=== PATIENT | male | born 1955 | race Caucasian/White ===

== ENCOUNTER 2016-10-04 20:57 | Observation (INO) | payer OTHER ==
[2016-10-04] MEDS ORDERED: HYDROmorphONE/DILAUDID 1 MG/ML SYR IVP ONE ×2 (21:28→23:11)
[2016-10-04] MEDS ORDERED: ONDANSETRON 4 MG/2 ML VIAL IVP ONE (21:29)
[2016-10-04] MEDS ORDERED: NS 1,000 ML IV ONE (21:29)
[2016-10-04 21:33] LABS: ADD DIFF? NO; ADD MORPH? NO; ADD SCAN? NO; ATYPICAL LYMPHOCYTE FLAG 10 (0-99); FRAGMENT RBC FLAG 0 (0-99); HEMATOCRIT 37.5 % (40.0-51.0); HEMOGLOBIN 12.5 g/dL (13.7-17.5); LEFT SHIFT FLG 0 (0-99); LIPEMIA HEMOLYSIS FLAG 80 (0-99); MEAN CELL HEMOGLOBIN 29.3 pg (27.9-34.1); MEAN CELL HEMOGLOBIN CONCENTR. 33.3 g/dL (32.4-36.7); MEAN CELL VOLUME 87.8 fL (81.5-99.8); MEAN PLATELET VOLUME 10.4 fL (8.7-11.7); PLATELET CLUMPS FLAG 0 (0-99); PLATELET COUNT 219 10^3/uL (150-400); RED BLOOD CELL COUNT 4.27 10^6/uL (4.40-6.38)
[2016-10-04 21:52] LABS: ANION GAP 16 mEq/L (8-16); CARBON DIOXIDE 22 mEq/l (22-31); CHLORIDE 106 mEq/L (97-110); CREATININE 0.8 mg/dL (0.7-1.3); GLOMERULAR FILTRATION RATE > 60; GLUCOSE 95 mg/dL (70-100); POTASSIUM 3.5 mEq/L (3.5-5.2); SODIUM 144 mEq/L (134-144)
--- NOTE | 2016-10-04 22:43 | EDPHY ---
H & P Stated Complaint: illestomy reversal 1 month ago; severe RUQ and stomach pain x1.5 hours Source: Patient Exam Limitations: No limitations - Medical/Surgical History Hx Asthma: No Hx Chronic Respiratory Disease: No Hx Diabetes: No Hx Cardiac Disease: No Hx Renal Disease: No Hx Cirrhosis: No Hx Alcoholism: No Hx HIV/AIDS: No Hx Splenectomy or Spleen Trauma: No Other PMH: spontaneous illestomy with reversal with bowel resection, appendectomy - Social History Smoking Status: Never smoked <Mehul Prieto - Last Filed: 10/04/16 23:12> <Kenia Joseph - Last Filed: 10/05/16 07:27> Time Seen by Provider: 10/04/16 22:09 HPI/ROS: CHIEF COMPLAINT: Abdominal pain HISTORY OF PRESENT ILLNESS: The patient presents to the ED with complaints of moderate abdominal pain which began approximately 1 hour prior to arrival after eating a small meal. The patient has a history of a bowel obstruction requiring surgery and a ileostomy. This was taken down approximately 1 month ago. The patient has been recovering slowly since his surgery. He had been advancing his diet. He saw his general surgeon yesterday who cleared the patient travel. The patient is visiting [place] today. While having a small amount of appetite or this evening, the patient developed fairly significant epigastric pain and right upper quadrant pain. The patient denies nausea or vomiting. The patient has not passed gas since the event. The patient denies fever. The patient has no medical comorbidities such as hypertension diabetes or immunosuppression. Patient does have a remote history of spontaneous pneumothorax requiring pleurodesis. REVIEW OF SYSTEMS: A comprehensive 10 point review of systems is otherwise negative aside from elements mentioned in the history of present illness. (Mehul Prieto) - Physical Exam Exam: General Appearance: Alert, no distress Eyes: Pupils equal and round no pallor or injection ENT, Mouth: Mucous membranes moist Respiratory: There are no retractions, lungs are clear to auscultation Cardiovascular: Regular rate and rhythm Gastrointestinal: Tenderness to palpation in the left upper quadrant, epigastrium and right upper quadrant, decreased bowel sounds, no peritoneal signs Neurological: A&O, normal motor function, normal sensory exam, normal cranial nerves Skin: Warm and dry, no rashes Musculoskeletal: Neck is supple nontender Extremities: symmetrical, full range of motion (Mehul Prieto) Constitutional: Initial Vital Signs Heart Rate 80 10/04/16 21:13 Respiratory Rate 20 10/04/16 21:13 Blood Pressure 151/101 H 10/04/16 21:13 O2 Sat (%) 99 10/04/16 21:13 O2 Delivery Mode Room Air Allergies/Adverse Reactions: morphine Allergy (Verified 10/04/16 21:13) Home Medications: Medication Instructions Recorded IRON 10/04/16 Multivitamin 10/04/16 Protonix 10/04/16 Medical Decision Making <Mehul Prieto - Last Filed: 10/04/16 23:12> - Diagnostics Imaging: Discussed imaging studies w/ call center recruiter Radiologist, I viewed and interpreted images myself <Kenia Joseph - Last Filed: 10/05/16 07:27> - Diagnostics Imaging Results: Imaging Impressions Abdomen X-Ray 10/04/16 22:41 Impression: Constipation with mild air distention of the transverse colon without evidence of obstruction. Abdomen CT 10/04/16 23:11 Impression: 1. Small bowel obstruction, possibly closed-loop, involving jejunum in the left abdomen, with prominent mesenteric edema and a small volume of ascites. 2. Constipation with relative decompression of colon in the left abdomen without definite evidence of obstruction. 3. Punctate right nephrolithiasis. 4. Additional findings as above. Findings discussed with Kenia Joseph 10/04/2016 at 23:50. ED Course/Re-evaluation: The patient presents the ED with abdominal pain decreased bowel sounds in the setting of recent bowel surgery. The patient's vital signs are stable. He has no significant leukocytosis or metabolic abnormality. KUB of the abdomen demonstrates no obvious obstruction. There is suggestion of constipation. The patient had an IV established. He received 1 mg of Dilaudid. He received a L of normal saline. The patient was reexamined by myself at 11:12 p.m.. He is having recurrent abdominal pain after some period of improvement following IV narcotics. Given his history of abdominal surgery, I have ordered a CT scan of the abdomen pelvis. Plan will be to assess for evidence of a perforation or obstruction. If this is negative I will recommend that we treat his constipation and potentially give him a GI cocktail. The patient will be turned over to Dr. Kenia Joseph at shift change pending his CT scan. (Mehul Prieto) At about 11:00 p.m. I assumed care of this patient. His CT scan results have returned demonstrating a small-bowel obstruction with a closed loop. I have reassessed the patient and he is continuing to have abdominal pain and tenderness. He has not had any vomiting. I have consulted with the on-call general surgeon Dr. Tolbert and we have discussed the case. We plan to admit the patient. I have discussed the plan with the patient. (Kenia Joseph) Differential Diagnosis: Differential diagnosis considered includes constipation, obstruction, perforation, gastritis, peptic ulcer disease (Mehul Prieto) - Data Points Laboratory Results: Laboratory Results 10/04/16 21:25 10/04/16 21:25 10/04/16 10/04/16 21:25 21:25 WBC 5.63 10^3/uL 10^3/uL (3.80-9.50) RBC 4.27 10^6/uL L 10^6/uL (4.40-6.38) Hgb 12.5 g/dL L g/dL (13.7-17.5) Hct 37.5 % L % (40.0-51.0) MCV 87.8 fL fL (81.5-99.8) MCH 29.3 pg pg (27.9-34.1) MCHC 33.3 g/dL g/dL (32.4-36.7) RDW 14.0 % % (11.5-15.2) Plt Count 219 10^3/uL 10^3/uL (150-400) MPV 10.4 fL fL (8.7-11.7) Neut % (Auto) 68.4 % % (39.3-74.2) Lymph % (Auto) 21.8 % % (15.0-45.0) [place] % (Auto) 7.8 % % (4.5-13.0) Eos % (Auto) 1.6 % % (0.6-7.6) Baso % (Auto) 0.4 % % (0.3-1.7) Nucleat RBC Rel Count 0.0 % % (0.0-0.2) Absolute Neuts (auto) 3.85 10^3/uL 10^3/uL (1.70-6.50) Absolute Lymphs (auto) 1.23 10^3/uL 10^3/uL (1.00-3.00) Absolute Monos (auto) 0.44 10^3/uL 10^3/uL (0.30-0.80) Absolute Eos (auto) 0.09 10^3/uL 10^3/uL (0.03-0.40) Absolute Basos (auto) 0.02 10^3/uL 10^3/uL (0.02-0.10) Absolute Nucleated RBC 0.00 10^3/uL 10^3/uL (0-0.01) Immature Gran % 0.0 % % (0.0-1.1) Immature Gran # 0.00 10^3/uL 10^3/uL (0.00-0.10) Sodium 144 mEq/L mEq/L (134-144) Potassium 3.5 mEq/L mEq/L (3.5-5.2) Chloride 106 mEq/L mEq/L (97-110) Carbon Dioxide 22 mEq/l mEq/l (22-31) Anion Gap 16 mEq/L mEq/L (8-16) BUN 13 mg/dL mg/dL (7-23) Creatinine 0.8 mg/dL mg/dL (0.7-1.3) Estimated GFR > 60 Glucose 95 mg/dL mg/dL (70-100) Calcium 10.0 mg/dL mg/dL (8.5-10.4) Medications Given: Discontinued Medications Bisacodyl (Dulcolax Rectal) 10 mg MT ONCE ONE Stop: 10/05/16 00:52 Last Admin: 10/05/16 01:37 Dose: 10 mg Hydromorphone HCl (Dilaudid) 1 mg IVP EDNOW ONE Stop: 10/04/16 21:29 Last Admin: 10/04/16 21:34 Dose: 1 mg Hydromorphone HCl (Dilaudid) 1 mg IVP EDNOW ONE Stop: 10/04/16 23:12 Last Admin: 10/04/16 23:14 Dose: 1 mg Sodium Chloride (Ns) 1,000 mls @ 0 mls/hr IV ONCE ONE PRN Reason: Wide Open Stop: 10/04/16 21:30 Last Admin: 10/04/16 21:35 Dose: 1,000 mls Ondansetron HCl (Zofran) 4 mg IVP EDNOW ONE Stop: 10/04/16 21:30 Last Admin: 10/04/16 21:35 Dose: 4 mg Departure <Mehul Prieto - Last Filed: 10/04/16 23:12> <Kenia Joseph - Last Filed: 10/05/16 07:27> - Departure Disposition: [facility] Acute Clinical Impression: Small bowel obstruction Condition: Fair
[2016-10-04] MEDS ORDERED: IOPAMIDOL (ISOVUE-300) 100 ML BTL ONE (23:15)
[2016-10-05] MEDS ORDERED: TEMAZEPAM 15 MG CAP PO PRN (00:46)
[2016-10-05] MEDS ORDERED: ONDANSETRON 4 MG/2 ML VIAL IVP PRN (00:46)
[2016-10-05] MEDS ORDERED: BISACODYL 10 MG SUPP PR PRN (00:51)
[2016-10-05] MEDS ORDERED: BISACODYL 10 MG SUPP PR ONE (00:51)
--- NOTE | 2016-10-05 01:01 | PDGENHP ---
History and Physical - Chief Complaint abd pain - History of Present Illness 60 y/o male one month s/p ileostomy takedown travelled to [place] yesterday on business from [place]. After dinner this evening he developed abdominal pain and he came to the ED. Surgical consultation was requested by Dr. Joseph for possible bowel obstruction. He denies nausea or emesis. He has received 2 mg of Dilaudid in the ED and appears comfortable. He reports daily bowel movements for the past couple of weeks and none today. 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 He remained hospitalized there for 2 weeks and after returning [place] the [place] he was rehospitalized for what sounds like dehydration/renal failure due to a persistent high ileostomy output. At age 15 he was hospitalized for a ruptured appendix with a prolonged recovery. History Information - Allergies/Home Medication List Allergies/Adverse Reactions: morphine Allergy (Verified 10/04/16 21:13) Home Medications: IRON 10/04/16 [Last Taken Unknown] Multivitamin 10/04/16 [Last Taken Unknown] Protonix 10/04/16 [Last Taken Unknown] I have personally reviewed and updated: family history, medical history, social history, surgical history - Past Medical History Additional medical history: gastric errosions following recent illness confirmed by EGD - Surgical History Reports: appendectomy Additional surgical history: bowel resection with ileostomy July 2016 for volvulus/takedown of ileostomy August 2016 - Social History Smoking Status: Never smoked Alcohol Use: Sober Drug Use: None Additional social history: here with co worker/lives in [place]- is coming tomorrow Review of Systems Constitutional: Reports: recent illness Gastrointestinal: Reports: abdominal pain, abdominal distention, constipation Genitourinary: Reports: no symptoms Physical Exam Temp Pulse Resp BP Pulse Ox 36.8 C 78 20 154/104 H 98 10/05/16 00:52 10/05/16 00:52 10/05/16 00:52 10/05/16 00:52 10/05/16 00:52 Constitutional: no apparent distress Eyes: anicteric sclera Ears, Nose, Mouth, Throat: moist mucous membranes Cardiovascular: regular rate and rhythym Respiratory: no respiratory distress, clear to auscultation Gastrointestinal: normoactive bowel sounds, tenderness, distension, other (well healing midline and RLQ incisions without signs of infection/no hernia/ tympanitic and tender throughout without guarding or rebound) Genitourinary: no bladder fullness Skin: warm, normal color Neurologic: AAOx3 Psychiatric: interacting appropriately, not anxious Lymph, Heme, Immunologic: no cervical LAD, no supraclavicular LAD Lab Data & Imaging Review 10/04/16 21:25 10/04/16 21:25 WBC 5.63 10^3/uL (3.80-9.50) 10/04/16 21:25 RBC 4.27 10^6/uL (4.40-6.38) L 10/04/16 21: Hgb 12.5 g/dL (13.7-17.5) L 10/04/16 21: Hct 37.5 % (40.0-51.0) L 10/04/16 21:25 MCV 87.8 fL (81.5-99.8) 10/04/16 21: MCH 29.3 pg (27.9-34.1) 10/04/16 21: MCHC 33.3 g/dL (32.4-36.7) 10/04/16 21: RDW 14.0 % (11.5-15.2) 10/04/16 21: Plt Count 219 10^3/uL (150-400) 10/04/16 21:25 MPV 10.4 fL (8.7-11.7) 10/04/16 21:25 Neut % (Auto) 68.4 % (39.3-74.2) 10/04/16 21:25 Lymph % (Auto) 21.8 % (15.0-45.0) 10/04/16 21:25 [place] % (Auto) 7.8 % (4.5-13.0) 10/04/16 21:25 Eos % (Auto) 1.6 % (0.6-7.6) 10/04/16 21:25 Baso % (Auto) 0.4 % (0.3-1.7) 10/04/16 21:25 Nucleat RBC Rel Count 0.0 % (0.0-0.2) 10/04/16 21: Absolute Neuts (auto) 3.85 10^3/uL (1.70-6.50) 10/04/16 21:25 Absolute Lymphs (auto) 1.23 10^3/uL (1.00-3.00) 10/04/16 21:25 Absolute Monos (auto) 0.44 10^3/uL (0.30-0.80) 10/04/16 21:25 Absolute Eos (auto) 0.09 10^3/uL (0.03-0.40) 10/04/16 21:25 Absolute Basos (auto) 0.02 10^3/uL (0.02-0.10) 10/04/16 21:25 Absolute Nucleated RBC 0.00 10^3/uL (0-0.01) 10/04/16 21:25 Immature Gran % 0.0 % (0.0-1.1) 10/04/16 21:25 Immature Gran # 0.00 10^3/uL (0.00-0.10) 10/04/16 21:25 Sodium 144 mEq/L (134-144) 10/04/16 21:25 Potassium 3.5 mEq/L (3.5-5.2) 10/04/16 21:25 Chloride 106 mEq/L (97-110) 10/04/16 21:25 Carbon Dioxide 22 mEq/l (22-31) 10/04/16 21:25 Anion Gap 16 mEq/L (8-16) 10/04/16 21:25 BUN 13 mg/dL (7-23) 10/04/16 21:25 Creatinine 0.8 mg/dL (0.7-1.3) 10/04/16 21:25 Estimated GFR > 60 10/04/16 21:25 Glucose 95 mg/dL (70-100) 10/04/16 21:25 Calcium 10.0 mg/dL (8.5-10.4) 10/04/16 21:25 Visualized and Interpreted Chest x-ray results: Yes Visualized and Interpreted imaging results: Yes Interpretation: plain abd films and CT reviewed. mild dilatation small bowel LLQ. Significant amount of stool and gas in the colon. distended stomach with solid/liquid. Assessment & Plan Assessment: abdominal pain with two recent laparotomies for a complicated volvulus requiring an ileostomy/subsequent takedown. I suspect his current symptoms are more likely related to obstipation related to ongoing Iron therapy and low residue diet. Certainly, mechanical obstruction of the small bowel is possible and I recommended he be admitted for observation and small bowel follow through in the AM. Will administer IV fluids and hold off on an NGT as he has not been vomiting.
[2016-10-05] MEDS: LR 1,000 ML IV SCH ×2 (01:37→08:31)
[2016-10-05] MEDS: PANTOPRAZOLE SODIUM 40 MG in NS 100 ML IV SCH ×3 (01:52→20:12)
[2016-10-05] MEDS: HYDROmorphONE/DILAUDID 1 MG/ML SYR IVP PRN ×3 (01:58→08:32)
[2016-10-05 05:25] LABS: % IMMATURE GRANULYOCYTES 0.2 % (0.0-1.1); ABSOLUTE IMMATURE GRANULOCYTES 0.01 10^3/uL (0.00-0.10); ADD DIFF? NO; ADD MORPH? NO; ADD SCAN? NO; ATYPICAL LYMPHOCYTE FLAG 0 (0-99); FRAGMENT RBC FLAG 0 (0-99); HEMOGLOBIN 11.3 g/dL (13.7-17.5); LEFT SHIFT FLG 0 (0-99); LIPEMIA HEMOLYSIS FLAG 80 (0-99); MEAN CELL HEMOGLOBIN 29.3 pg (27.9-34.1); MEAN CELL HEMOGLOBIN CONCENTR. 33.2 g/dL (32.4-36.7); MEAN CELL VOLUME 88.1 fL (81.5-99.8); MEAN PLATELET VOLUME 10.4 fL (8.7-11.7); PLATELET CLUMPS FLAG 0 (0-99); PLATELET COUNT 176 10^3/uL (150-400); RED BLOOD CELL COUNT 3.86 10^6/uL (4.40-6.38)
[2016-10-05 05:50] LABS: ANION GAP 11 mEq/L (8-16); CALCIUM 9.2 mg/dL (8.5-10.4); CARBON DIOXIDE 24 mEq/l (22-31); CHLORIDE 109 mEq/L (97-110); CREATININE 0.8 mg/dL (0.7-1.3); GLOMERULAR FILTRATION RATE > 60; GLUCOSE 99 mg/dL (70-100); POTASSIUM 3.9 mEq/L (3.5-5.2); SODIUM 144 mEq/L (134-144)
--- NOTE | 2016-10-05 07:41 | SOAPPROG ---
Downtime Inpatient MD Late Entry SOAP Note: Justino is still having pain requiring Diluadid. No emesis He passed a couple of small hard stools after an enema. He remains afebrile/VSS Abd: soft, distended, incisions unchanged, mild tenderness without guarding KUB: large bowel gas/stool. Imp: severe obstipation/one month s/p ileostomy takedown Rec: SBFT with gastrograffin to rule out SBO S MD Didi, FACS
--- NOTE | 2016-10-05 17:21 | SOAPPROG ---
Downtime Inpatient MD Late Entry SOAP Note: delayed films show gastrograffin to have passed into large bowel will attempt trial of diet S MD Didi, FACS
--- NOTE | 2016-10-06 07:52 | SOAPPROG ---
SOHERMILO Progress Note Assessment/Plan: Assessment:obstipation/no SBO on SBFT Plan: advance diet/home later today if tolerated 10/06/16 07:50 Subjective: feels better/some hard stool passing Objective: Vital Signs Temp Pulse Resp BP Pulse Ox 36.9 C 61 16 120/79 94 10/06/16 04:00 10/06/16 04:00 10/06/16 04:00 10/06/16 04:00 10/06/16 04:00 Laboratory Results 10/05/16 04:55 10/05/16 04:55 10/05/16 10/06/16 10/07/16 05:59 05:59 05:59 Intake Total 1000 900 Balance 1000 900 - Pending Discharge Pending Discharge Within 24 Hours: Yes Pending Discharge Date: 10/07/16 Pending Discharge Time: 11:00 Physical Exam - Physical Exam General Appearance: alert, no apparent distress Abdomen: normal bowel sounds, non-tender, soft Neuro/Psych: alert, oriented x 3 ICD10 Worksheet Patient Problems: Problems Problem Status Onset Small bowel obstruction Acute
[2016-10-06] MEDS: LACTULOSE 20 GM/30 ML UDCUP PO SCH ×3 (08:43→22:00)
[2016-10-06] MEDS: SENNOSIDES/DOCUSATE SODIUM TAB PO SCH ×2 (08:43→22:00)
[2016-10-06] MEDS: POLYETHYLENE GLYCOL 3350 17 GM PKT PO SCH (08:43)
[2016-10-06] MEDS: PANTOPRAZOLE SODIUM 40 MG in NS 100 ML IV SCH ×2 (08:43→22:00)
--- NOTE | 2016-10-06 18:56 | SOAPPROG ---
Downtime Inpatient MD Late Entry SOAP Note: Only minimal response to laxatives/Fleets Enema. Abd remains soft, mildly distended, non-tender I recommend Mineral Oil/Soap Suds Enema and admission for an additional midnight S MD Didi, FACS
[2016-10-06 19:40] VITALS: TEMP 98.1
[2016-10-07 08:22] VITALS: BP 130/89; PULSE 63; RESP 20; O2SAT 95
[2016-10-07] MEDS: LACTULOSE 20 GM/30 ML UDCUP PO SCH (08:43)
[2016-10-07] MEDS: SENNOSIDES/DOCUSATE SODIUM TAB PO SCH (08:43)
[2016-10-07] MEDS: POLYETHYLENE GLYCOL 3350 17 GM PKT PO SCH (08:43)
[2016-10-07] MEDS: PANTOPRAZOLE SODIUM 40 MG in NS 100 ML IV SCH (08:44)
--- NOTE | 2016-10-07 10:37 | PDDCSUM ---
Discharge Summary Discharge Summary: DOA:10/05/16 DOD: 10/07/16 DC Dx: 1. abdominal pain-one month s/p ileostomy takedown 2. obstipation 3. hx blood loss anemia 4. hx. gastric erosions Procedures: CT abd/pelvis 10/04/16 SBFT 10/05/16 Course: 60 y/o male admitted for sudden onset abd pain. He was one month s/p ileostomy takedown ([place], [place]) and 2 months s/p lapartomomy/ileostomy for small bowel volvulus ([facility]). He presented to the ED at [facility] and a CT showed "bowel obstruction". I admitted the patient for observation and obtained a SBFT the following day which showed no evidence of SBO. He had significant obstipation on plain films and CT likely related to taking iron for anemia. He was started on Senokot-S, Lacutulose and Miralax with not much success. Dulcolax suppositories, Fleets enemas and ultimately a soap suds enema were necessary to get his bowels moving again. At time of discharge he was tolerating a regular diet, he was afebrile and ambulatory. I recommended he continue stool softeners and laxatives and follow up with his clamp truck driver in [place]. Condition at time of discharge: improved Meds: Protonix 40 mg BID Senokot-S 2 po BID Lactulose 20 ml po TID Miralax 17 gm po q day Benefiber 1 tbsp po BID S MD Didi, FACS
== END 2016-10-07 12:04 | disposition home or self-care (01) ==
LOC: F3E 10-05 01:15 → INTOOBSV 10-06 18:54 → OBSVTOIN 10-06 18:54
PROVIDERS: ADMIT Surgery; ATTEND Surgery
DX: R10.11 Right upper quadrant pain (principal); K59.00 Constipation, unspecified; D64.9 Anemia, unspecified; N20.0 Calculus of kidney; Z87.19 Personal history of other diseases of the digestive system; Z98.890 Other specified postprocedural states; Z98.0 Intestinal bypass and anastomosis status; Z90.49 Acquired absence of other specified parts of digestive tract
CPT/HCPCS: 74000; 74177; 74250; 96361; 96374; 96375; 96376; 99285; G0378; J1170; J2405; Q9967